=== PATIENT | male | born 1985 | race American Indian/Alaskan Native ===

== ENCOUNTER 2018-02-08 11:47 | Emergency (ER) | payer SELFPAY ==
[2018-02-08 11:57] VITALS: BP 119/76
== END 2018-02-08 15:09 | disposition left against medical advice (07) ==
LOC: ED 11:47
DX: R07.9 Chest pain, unspecified (principal); R07.81 Pleurodynia; Z91.010 Allergy to peanuts; Z53.21 Procedure and treatment not carried out due to patient leaving prior to being seen by health care provider
CPT/HCPCS: 93005; 93010